=== PATIENT | male | born 1960 | race Caucasian/White ===

== ENCOUNTER → 2017-02-14 | Outpatient (CLI) | payer OTHER ==
--- NOTE | 2017-02-14 11:24 | RAD ---
Acute abdomen series with chest, 3 views, 02/14/2017: History: Chest congestion, abdominal pain The abdominal gas pattern is unremarkable without evidence of obstruction. No free air is seen in the abdomen. There is no evidence of organomegaly. Lower pelvic calcifications are probably phleboliths. There are moderate scattered degenerative changes in the spine. The heart size is normal. No pulmonary infiltrate is seen. There is no evidence of pleural fluid. IMPRESSION: No acute abnormality is detected.
== END | disposition home or self-care (01) ==
LOC: DXRADRC 10:50
PROVIDERS: ATTEND Nurse Practitioner Family
DX: R09.89 Other specified symptoms and signs involving the circulatory and respiratory systems (principal); R10.9 Unspecified abdominal pain; M47.899 Other spondylosis, site unspecified
CPT/HCPCS: 74022